=== PATIENT | male | born 1980 | race Caucasian/White ===

== ENCOUNTER 2017-03-06 20:05 | Inpatient (IN) | payer BC ==
[2017-03-06] MEDS ORDERED: Ondansetron HCl/PF 4 MG/2 ML Vial ONE (20:24)
[2017-03-06] MEDS ORDERED: Fentanyl 100 MCG/2 ML VIAL ONE ×2 (20:24→21:34)
[2017-03-06 20:50] LABS: Hematocrit 48.9 % (42.0-52.0); Mean Platelet Volume 7.3 fL (7.4-10.4); Red Blood Cell (RBC) Count 5.19 mill/uL (4.70-6.10); White Blood Cell (WBC) Count 8.4 thou/uL (4.8-10.8)
[2017-03-06 20:56] LABS: PTT 24.5 SEC (22.9-36.1); Prothrombin Time 11.5 SEC (12.0-14.7)
[2017-03-06 21:13] LABS: ALT (SGPT) 29 U/L (8-55); AST (SGOT) 21 U/L (5-34); Alkaline Phosphatase 47 U/L (40-150); Anion Gap 17 mmol/L (10-20); BUN (Urea Nitrogen) 10 mg/dL (8.9-20.6); Bilirubin, Total 0.6 mg/dL (0.2-1.2); Calc. Creatinine Clearance 0 mL/min (70-130); Carbon Dioxide 22 mmol/L (22-29); Chloride 105 mmol/L (98-107); Estimated GFR-MDRD 85; Globulin 3.5 g/dL (2.4-3.5); Neutrophil 29 % (42-75); Protein, Total 8.5 g/dL (6.0-8.3); Reactive Lymphocytes 3 % (0-10)
--- NOTE | 2017-03-06 21:14 | RAD ---
FOUR VIEWS LEFT ELBOW 03/06/17 HISTORY: Patient fell over dog with left elbow pain. AP, lateral and both oblique views left elbow is obtained. Four views left elbow demonstrates no evidence of left elbow fractures, subluxations, or bony lesion s seen. IMPRESSION: Normal four views left elbow. POS: [facility]
--- NOTE | 2017-03-06 21:27 | CT ---
CT BRAIN 03/06/17 HISTORY: Fall with head trauma. Noncontrast enhanced CT images of the brain is obtained. The brain is unremarkable. No evidence of intracranial masses, hemorrhages, strokes, or contusions s een. Ventricles are of normal size. IMPRESSION: Normal CT brain. POS: [facility]
--- NOTE | 2017-03-06 21:33 | RAD ---
THREE VIEWS LEFT HAND: 03/06/17 HISTORY: Patient who fell over a dog with trauma and injury and pain into the left hand. AP, lateral and oblique views left hand is obtained. Three views left hand demonstrate no evidence of left hand fractures, subluxations, or bony lesions. IMPRESSION: Normal three views left hand. POS: [facility]
--- NOTE | 2017-03-06 22:29 | CT ---
CT CERVICAL SPINE 03/06/17 HISTORY: 37-year-old who fell over his dog. Presents to the Emergency Room with bleeding of the nose and poss ible loss of consciousness. Axial images are obtained with coronal and sagittal reconstructions. Anterior and posterior degenerating osteophytes seen at the C5-6 disc space. No evidence of acute fr actures seen. Vertebral bodies are unremarkable. The neural foramen are patent. IMPRESSION: No evidence of acute cervical spine fracture seen. POS: [facility]
--- NOTE | 2017-03-06 22:32 | RAD ---
THREE VIEWS LEFT WRIST 03/06/17 HISTORY: Fell over dog with left wrist pain. AP, lateral and oblique views left wrist is obtained. FINDINGS/IMPRESSION: No evidence of acute left wrist fractures or bony lesions seen. There does appears to be an area of ossification adjacent to the ulnar styloid. This may be due to previous old trauma. No acute left wr ist fractures or bony lesions seen. If patient has continued pain and there is clinical concern for an occult fracture, repeat radiograph left wrist in 7-10 days may be a consideration for followup. POS: [facility]
[2017-03-06] MEDS ORDERED: Sodium Chloride 0.9% 1,000 ML IV SCH (23:00)
[2017-03-06] MEDS ORDERED: Dexamethasone 4 MG TAB ONE (23:05)
[2017-03-06] MEDS ORDERED: Morphine 2 MG/ML SYRINGE ONE ×2 (23:08→23:13)
[2017-03-06] MEDS ORDERED: CEFAZOLIN/Water 2 GM/20 ML SYRINGE SLOW IVP SCH (23:15)
--- NOTE | 2017-03-07 00:02 | MRI ---
MRI CERVICAL SPINE 03/06/17 HISTORY: 37-year-old who fell with pain in upper arms. Multiplanar and multisequence noncontrast enhanced MRI images cervical spine obtained. Images are suboptimal due to patient motion. The patient had multiple sequences repeated; however, t he patient repeatedly is moving, and degrading the quality of the exam. No definite evidence of cord signal abnormality seen. Multilevel cervical spinal stenosis is seen. T he patient appears to have congenital and chronic changes of cervical stenosis, most extensive invol ving the mid cervical spine extending from C3-4 to a lesser degree C4-5 and the C5-6 levels. C1-2: Unremarkable. C2-3: There is a mild broad based disc bulge resulting in mild to moderate compression of the anteri or aspect of the C2-3 central spinal canal. No evidence of cord compression is seen. The neural fora men are patent. C3-4: There is a broad based disc osteophyte complex at C3-4 compressing the thecal sac resulting in moderate to severe central spinal stenosis. There is moderate right and moderate to severe left leonila ed C3-4 neural foraminal narrowing due to uncovertebral osteophyte hypertrophy. C4-5: There is a broad central disc osteophyte protrusion and disc osteophyte complex which compress es the thecal sc resulting in moderate degree of central spinal stenosis. Minimal bilateral neural f oraminal narrowing is seen. C5-6: There is a broad based disc osteophyte complex at C5-6 compressing the thecal sac resulting in moderate to severe C5-6 central spinal stenosis compressing the thecal sac and having some moderate cord compression as well. No definite evidence of cord edema is seen; however, images are less than optimum as mentioned above due to patient motion. Subtle cord edema cannot be excluded due to patie nt motion. There does appear to be moderate severe right and mild to moderate left C5-6 neural kaylee inal narrowing due to uncovertebral osteophyte hypertrophy. C6-7: Unremarkable. IMPRESSION: C3-4 and C5-6 moderate to severe central spinal stenosis. Less severe C4-5 central stenosis is also seen. These appear to be longstanding and chronic. No definite evidence of significant edema seen in the spinal cord or obvious soft tissue components of the cervical spine. POS: [facility]
[2017-03-07] MEDS ORDERED: Ondansetron ODT 4 MG TAB SL PRN (01:24)
[2017-03-07] MEDS ORDERED: Ondansetron HCl/PF 4 MG/2 ML Vial IVP PRN ×2 (01:24→19:57)
[2017-03-07] MEDS: Morphine 2 MG/ML SYRINGE SLOW IVP PRN ×3 (01:44→05:58)
[2017-03-07] MEDS: Dexamethasone 4 MG in Sodium Chloride 0.9% 50 ML IVPB SCH ×5 (01:49→23:18)
[2017-03-07 03:13] VITALS: BMI 36.8
--- NOTE | 2017-03-07 06:22 | CON ---
DATE OF CONSULTATION: 03/06/2017 HISTORY OF PRESENT ILLNESS: Mr. Silverman is a 37-year-old male, who I saw in the emergency depar tment at [facility]. He reports out playing with his children in the yard when chang bhagat tripped over his Labrador and fell. The patient thinks that he passed out and hit his face. He h as a laceration above the right eye. He described when he awoke, he could not feel his arms or move them and this lasted for approximately 4-5 minutes. His legs initially had some sensation or pares thesias to the legs, however, they resolved quickly. He was able to roll up over and stand up, just using his legs. The strength began to come back into his arms, but he describes sensation of burni ng and tingling and on fire in his arms; from the elbow down to the hand is the worst bilaterally. His neck feels stiff. There has been no change in the patient's condition since [facility]. He has pain in bilateral arms, rated 10/10. A CT scan of the neck was completed and was negative. A CT scan of the head was completed and was negative; however, the patient had sy mptoms of central cord syndrome and he is currently in the MRI scanner. Neurosurgery was consulted for these findings. 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 ALLERGIES: No known drug allergies. CURRENT MEDICATIONS: None. PAST MEDICAL HISTORY: Includes tetanus up-to-date, flu vaccine up-to-date, pneumococcal vaccine not up-to-date. PAST SURGICAL HISTORY: Left shoulder surgery and left foot surgery. SOCIAL HISTORY: The patient drinks socially once a month. He denies drug use. Currently uses toba account executive, chewing tobacco approximately 1 can every 4 days. REVIEW OF SYSTEMS: Patient complains of paresthesias, numbness and tingling in the upper extremitie s bilaterally. He has no focal weakness. All other review of systems is negative except for that m entioned above in HPI. PHYSICAL EXAMINATION: VITAL SIGNS: The patient's vital signs on admission were blood pressure 140/129, pulse of 92, respi rations 20, temperature 97.8, O2 sat 100% on room air. GENERAL: The patient is alert and oriented x3, appears to be in no acute distress. HEENT: Head is normocephalic, atraumatic with a small laceration above his right eye and on the nos e. His hearing is intact. He has moist mucous membranes. His trachea is midline. Eyes, pupils ar e equal and reactive to light. Extraocular muscles are intact. Sclerae are white, nonicteric. NECK: Patient is in a rigid C-collar. There is no swelling around his neck. RESPIRATORY: The patient has bilateral symmetric chest rise. He has nontender chest. He has no re spiratory distress. CARDIOVASCULAR: Patient has regular rate and rhythm, normal S1, S2 heart sounds, appears to have no distal cyanosis or clubbing. ABDOMEN: Abdomen is nontender, nondistended. No peritoneal signs. BACK: No tenderness to palpation along the thoracic and lumbar spine. No bruising. EXTREMITIES: Upper extremity tenderness to palpation of the arms and wrists, tingling in the arms a nd wrists and burning feeling. No broken skin on the upper extremities. Lower extremity inspection , normal range of motion, bony prominences, nontender. No deformities, no lesions, and no dermatoma l sensory loss. NEUROLOGIC: Cranial nerves II-XII are grossly intact. Speech is fluent. He answers my questions a ppropriately. His GCS is 15. He has got no focal sensory or motor deficits in the upper or lower e xtremities. SKIN: Skin is warm and dry, normal in color. LABORATORY DATA: Patient's total protein is 8.5. His prothrombin time is 11.5. INR is normal. ASSESSMENT: Mr. Silverman is a 37-year-old male, who presents with central cord syndrome. He has paresthesias to the upper extremities bilaterally. PLAN: We will admit Mr. Silverman to the surgical non-ortho floor. We will start Decadron 4 mg p .o. q.6 hours. We will do neuro checks q.4 hours. We will keep his map 85-90 mmHg. We will order a Circle J collar. We will also start gabapentin for the burning sensation in his upper extremities and help to control his pain. If there are any further questions, please feel free to contact Neuro surgery. Thank you for this consult and ability to care for this patient.
--- NOTE | 2017-03-07 06:48 | PRG ---
DATE OF SERVICE: 03/07/2017 Mr. Silverman is a 37-year-old male I saw in his room this morning. He came in last night with sy mptoms of central cord syndrome. Overnight, his vital signs have been stable. He still complains o f burning, numbness, and tingling from the mid upper arm down to his fingers bilaterally. He has go od strength in his upper and lower extremities bilaterally. Today we will plan on doing a multileve l cervical decompression. I will add gabapentin to his medicine regimen. We will also get physical therapy involved post-surgery. There are no new labs. The report on the cervical spine has resulted showing C3-4 and C5-6 severe c entral canal stenosis. No definitive evidence of significant edema in the spinal cord, obvious soft tissue components of the cervical spine. If there are any further questions, please feel free to contact Neurosurgery.
--- NOTE | 2017-03-07 06:57 | PRG ---
DATE OF SERVICE: 03/07/2017 I personally interviewed and examined the patient and agree with documentation of Robert Weiss PA-C, dated 03/06/2017. Briefly, Owen Silverman is a 37-year-old gentleman who was playing with his 8-year-old son yester day. He thinks he tripped over his Labrador and on the way down his head struck an object. He has some forced extension of the cervical spine and immediate weakness in both arms. He was brought to the emergency department where the legs worked quite well, but the arms were nonfunctional. Eventua lly, they began to function and the motor strength has returned. Unfortunately, that return of stre ngth is accompanied by some terrible central pain which is burning dysesthesias in both forearms and hands. Overnight his neurological examination has stayed. Yesterday an MRI scan was performed. This morning, Mr. Silverman was seen in his hospital room. He is reasonably comfortable. He just got an injection of morphine and that has temporized his pain a bit. He has good strength in the i nterossei of both hands. The wrist and finger extensors and proximal muscles seem to be working wel l at least antigravity, but it is difficult to examine them fully given the burning pain in the arms . I reviewed the MRI scan of the cervical spine, there is intervertebral disk disease with cord compre ssion at C3-4 and C5-6. At both of these levels the cord was severely compressed. This clinical scenario, it is a central cord syndrome. I have offered to decompress the cord today with an ACDF at both levels. INFORMED CONSENT: I discussed indications, risks, benefits, and alternatives as well as expected ou tcomes from surgery. The risks discussed included, but were not limited to bleeding, infection, CSF leak, nerve damage, damage to the carotid artery, trachea, jugular vein, vocal cords or swallowing mechanism, spinal cord injury, paralysis, ventilator dependence, wheelchair dependence, cardiopulmon ruben complications of anesthesia and . Long-term risks include instrumentation failure and need for further surgery. Mr. Silverman understands the risks and is willing to proceed. We will tabatha e him to the operating room today.
[2017-03-07] MEDS ORDERED: hydrALAZINE 20 MG/ML VIAL SLOW IVP PRN (07:19)
[2017-03-07] MEDS ORDERED: Dextrose 50% Abboject 50 ML SYRINGE SLOW IVP PRN (07:19)
[2017-03-07] MEDS ORDERED: Dextrose 5% in Water 1,000 ML IV PRN (07:19)
[2017-03-07] MEDS: Morphine 2 MG/ML SYRINGE IVP PRN ×4 (07:56→23:33)
[2017-03-07] MEDS: Famotidine/PF 20 mg/2ml Vial SLOW IVP SCH ×2 (08:10→21:55)
[2017-03-07] MEDS: Pantoprazole 40 MG VIAL IVP SCH (08:11)
[2017-03-07] MEDS: Gabapentin 300 MG CAP PO SCH ×3 (08:16→21:55)
--- NOTE | 2017-03-07 09:43 | HP ---
DATE OF ADMISSION: 03/06/2017 REQUESTING PHYSICIAN: Dr. Shea. CONSULTATIONS: Neurosurgery, Dr. Phelan. ATTENDING SURGEON: Dr. Gong. HISTORY OF PRESENT ILLNESS: The patient is a 37-year-old man, who was playing in the yard with his son when he fell and landed face forward and hyperextended his neck, and the patient repor ts several minutes of being unable to use his upper extremities and some weakness in his lower extre mities. The patient was able to eventually get himself to his feet and ambulate to his house where he was able to notify a neighbor, who brought him to the emergency department where he underwent vandana luation and was noted to have a central cord syndrome, at which time we were asked to evaluate the p atient for admission and obtain neurosurgical consultation. ALLERGIES: None. MEDICATIONS: None. PAST MEDICAL HISTORY: None. PAST SURGICAL HISTORY: Left shoulder reconstruction and left foot bunionectomy. 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 He chews tobac co approximately 1 can every 4 days, occasional ETOH, and denies drug use. FAMILY MEDICAL HISTORY: Significant for hypertension. PHYSICAL EXAMINATION: VITAL SIGNS: Temperature is 97.9, heart rate is 79, blood pressure 123/85, respirations 20, oxygen saturation is 97% on room air. GENERAL: The patient is resting comfortably in bed. He is alert and oriented x3. Jeffrey coma sca le is 15. HEENT: Head is atraumatic, normocephalic. Eyes, extraocular motion intact. PERRLA bilaterally. E ars are atraumatic without discharge. Nose is atraumatic without discharge. Oropharynx is clear. NECK: Currently immobilized in a Jakin J Collar. Patient denies midline tenderness. His trachea i s midline. No JVD. CHEST: Clear to auscultation with good inspiratory and expiratory effort. ABDOMEN: Soft and flat with hypoactive bowel sounds. Pelvis is stable. EXTREMITIES: The patient has 5/5 strength in all 5 extremities. NEUROLOGIC: The patient is intact in bilateral lower extremities. His upper extremities have a mul tidermatomal varying decrease in sensation and cortical pins and needle sensation from his neck down to his fingertips. He says there is occasional burning with this and some numbness. BACK: Atraumatic and nontender. LABORATORY FINDINGS: White blood cell count 8.4, hemoglobin 17.5, hematocrit 48.9, platelets 272. Sodium 140, potassium 4.0, chloride 105, CO2 of 22, BUN 10, creatinine 1.00, glucose 97. LFTs are u nremarkable. PT 12, INR 0.8, PTT 25. RADIOGRAPHIC REPORT: CT of the brain without contrast shows no acute abnormalities. CT of the C-sp ine without contrast shows no evidence of acute cervical spine fracture. Radiographs of the left yoon nd are normal. Radiographs of the left wrist showed no definite acute findings. Radiographs of the left elbow are unremarkable. MRI of the C-spine shows C3-C4 and C5-C6 [id number] central c anal stenosis. There is no definite evidence of significant edema in the spinal cord or obvious sof t tissue components of the cervical spine. ASSESSMENT AND PLAN: 1. Status post ground-level fall. 2. Central cord syndrome. Plan will be to admit the patient to the surgical floor, discussion with Neurosurgery, the patient w ill be consented for surgical decompression, and the appropriate procedures will happen today. The patient will remain n.p.o. He will have pain control, pulmonary toilet, gastritis and mechanical DV T prophylaxis instituted. The evaluation, examination, laboratory, and radiographic findings were d iscussed with Dr. Gong, both in the emergency department and this morning. The patient and his m other's questions were answered at this time also. The patient will also be rounded on by the [facility] later this morning.
[2017-03-07] MEDS: Sodium Chloride 0.9% 1,000 ML IV SCH ×2 (10:43→18:10)
[2017-03-07] MEDS: Famotidine 20 MG TAB PO SCH ×2 (10:43→21:55)
[2017-03-07] MEDS: Diazepam 10 MG/2 ML SYRINGE IVP PRN ×2 (10:48→23:19)
[2017-03-07] MEDS ORDERED: Acetaminophen 1,000 MG in Premix Bag 1 BAG IVPB SCH (12:00)
[2017-03-07] MEDS ORDERED: Fentanyl 100 MCG/2 ML VIAL ONE ×6 (13:37→20:09)
[2017-03-07] MEDS ORDERED: Midazolam HCl 2 mg/2 ml Vial ONE (13:59)
[2017-03-07] MEDS ORDERED: CEFAZOLIN/Water 2 GM/20 ML SYRINGE ONE (14:16)
[2017-03-07] MEDS ORDERED: Sodium Chloride 0.9% 10 ML ONE (14:30)
[2017-03-07] MEDS ORDERED: Thrombin 5000 UNITS/5 ML VIAL ONE (14:30)
[2017-03-07] MEDS ORDERED: Fentanyl 250 MCG/5 ML VIAL ONE (15:17)
[2017-03-07] MEDS ORDERED: Propofol 200 MG/20 ML VIAL ONE (15:48)
[2017-03-07] MEDS ORDERED: Ondansetron HCl/PF 4 MG/2 ML Vial ONE (15:48)
[2017-03-07] MEDS ORDERED: Ketorolac Tromethamine 30 MG/ML VIAL ONE (15:48)
[2017-03-07] MEDS ORDERED: Dexamethasone 20 MG/5 ML VIAL ONE (15:48)
[2017-03-07] MEDS ORDERED: Lidocaine 1% PF 5 ML VIAL ONE (15:48)
[2017-03-07] MEDS ORDERED: PHENYLEPHRINE-NS 100 MCG/ML 10 ML SYRINGE ONE (15:48)
[2017-03-07] MEDS ORDERED: Glycopyrrolate 0.2 MG/ML 5 ML SYRINGE ONE (15:48)
[2017-03-07] MEDS: Acetaminophen 1,000 MG in Premix Bag 1 BAG IVPB SCH ×2 (16:03→21:49)
[2017-03-07] MEDS ORDERED: Phenylephrine 10 MG/NS 250 ML 250 ML ONE (16:04)
[2017-03-07] MEDS ORDERED: Rocuronium Bromide 50 MG/5 ML VIAL ONE (19:08)
[2017-03-07] MEDS ORDERED: Ondansetron ODT 4 MG TAB PO PRN (19:37)
[2017-03-07] MEDS ORDERED: HYDROmorphone 2 MG/ML VIAL SLOW IVP PRN (19:57)
[2017-03-07] MEDS ORDERED: Promethazine HCl 25 MG/ML VIAL IM PRN (19:57)
[2017-03-07] MEDS ORDERED: Promethazine HCl 25 MG/ML VIAL SLOW IVP PRN (19:57)
[2017-03-08] MEDS: Morphine 2 MG/ML SYRINGE IVP PRN (01:08)
--- NOTE | 2017-03-08 01:46 | OP ---
DATE OF SURGERY: 03/07/2017 SURGEON: Megan Phelan M.D. GERIATRIC NURSE ASSISTANT: Robert Weiss PA-C. PREOPERATIVE INDICATION: Prevent neurological deterioration. PREOPERATIVE DIAGNOSIS: Traumatic intervertebral disk herniation C3-C4, C5-C6 with central spinal c ord injury. POSTOPERATIVE DIAGNOSIS: Traumatic intervertebral disk herniation C3-C4, C5-C6 with central spinal cord injury. OPERATIVE PROCEDURES: Anterior cervical diskectomy, intravertebral arthrodesis, placement of interv ertebral biomechanical devices, local morselized autograft, morselized allograft, and anterior cervi juwan plating at C3-C4 and at C5-C6, operating microscope. PREOPERATIVE MEDICATION: Ancef 2 grams IV. DRAIN NUMBER: Zero. DRAIN TYPE: None. OPERATIVE DICTATION: The patient was brought to the operating room. General endotracheal anesthesi a was induced. Intubation was awake fiberoptic. We kept the neck in static normal anatomic alignme nt position of thehead on a gel-filled donut shaped head rest. A lateral fluoro radiograph was used to plan our incision. The right side of the neck was sterilely prepped and draped. We opened with a 10 blade knife and controlled bleeding with bipolar cautery. We dissected sharply to the platysm a and cut this muscle in line with our incision. We continued our dissection medial to the sternocl eidomastoid and lateral to the trachea and esophagus. We arrived to the prevertebral space. We renato alexx a marker at C3-C4 and took a lateral fluoro radiograph to confirm the levels upon which we were operating. We then elevated the longus colli muscles off the anterior surface of C3, C4, C5, and C6 . We placed a self-retaining retractor at C3-C4 and distraction pins in C3 and C4 and distracted ac ross the intervening interspace. We incised the interspace with a 15 blade knife and removed disk c ontents using curettes and rongeurs. The operating microscope was brought into the field. Under microscopic magnification and using microsurgical techniques, we removed the remainder of the intervertebral disk. We carefully accessed the ventral epidural space with a micro curet and used a 1-mm Kerrison rongeurs to remove the posterior longitudinal ligament and all the disk material from the spinal canal. We decompressed both nerve roots and at the completion of the decompression, the dura was no longer under tension. We prepped the endplates for grafting using curets and measured the height of the interspaces to 7 mm. A 7-mm PEEK intravertebral graft was brought into the field. This biomechanical device was loaded with demineralized bone matrix and morselized autograft. The autograft was carefully prepared on the back table by removing soft tissue from the osteophytes, th at were taken out during our decompression. The morselized bone was added to demineralized bone mat lisa as our fusion substrate, placed into the PEEK graft and the PEEK graft was advanced into the int erspaces under radiographic guidance to the appropriate depth. We removed the distraction pins and the lateral retractors. We removed the retractor to C5-C6. We placed distraction pins that we had removed from C3-C4 into C5-C6. We distracted across the intervening interspace. We continued under the operating microscope to remove the intervertebral disk. We accessed the ventral epidural space in the same fashion and removed the posterior longitudinal ligament from one neural foramen all the way to the other. We prepared the endplates for grafting and measured the height of the interspace s to 6 mm. A 6 mm PEEK graft was brought into the field. This was loaded with demineralized bone m atrix and morselized autograft and advanced into the C5-C6 interspaces under radiographic guidance t o the appropriate depth. We then removed our distraction pins and lateral retractors. The operatin g microscope was taken back out of the field. At C5-C6, a 16-mm anterior cervical plate was brought into the field. We drilled airline pilot/first officer holes throug h the plate into the vertebral segments and affixed the plate using 14 mm screws. We used variable angle screws at C5 and fixed angle screws at C6. We engaged the locking mechanism over each of the 4 screws. We turned our attention to C3-C4. Here, a 14 mm plate was used. We drilled airline pilot/first officer holes in the same fashion and affixed the plate using 14 mm screws as well. We used fixed angle screws at C4 and variable angle screws at C3. AP and lateral fluoro radiographs confirmed adequate position of all instrumentation. We rechecked the locking mechanism over all 8 screws and they were engaged. We irrigated copiously with bacitracin irrigation. We closed the wound in anatomic layers and we applied a sterile dressing. This was a clean case and no contamination.
[2017-03-08] MEDS: Morphine 2 MG/ML SYRINGE SLOW IVP PRN ×4 (02:02→08:14)
[2017-03-08] MEDS: Acetaminophen 1,000 MG in Premix Bag 1 BAG IVPB SCH ×3 (02:06→14:27)
[2017-03-08] MEDS: diphenhydrAMINE 50 MG/ML VIAL IVP PRN ×4 (04:42→20:00)
[2017-03-08] MEDS: Sodium Chloride 0.9% 1,000 ML IV SCH (04:44)
[2017-03-08] MEDS: Dexamethasone 4 MG in Sodium Chloride 0.9% 50 ML IVPB SCH (05:02)
[2017-03-08 05:39] LABS: #Basophils 0.1 thou/uL (0.0-0.2); #Lymphocytes 1.1 thou/uL (1.20-3.40); #Monocytes 0.6 thou/uL (0.11-0.59); #Neutrophils 8.3 thou/uL (1.40-6.50); %Basophils 1.2 % (0.0-1.0); %Eosinophils 0.1 % (0.0-10.0); %Lymphocytes 11.3 % (21.0-51.0); %Monocytes 5.7 % (0.0-10.0); Hematocrit 41.2 % (42.0-52.0); Mean Platelet Volume 7.4 fL (7.4-10.4); Red Blood Cell (RBC) Count 4.32 mill/uL (4.70-6.10); White Blood Cell (WBC) Count 10.1 thou/uL (4.8-10.8)
[2017-03-08 05:44] LABS: Anion Gap 14 mmol/L (10-20); BUN (Urea Nitrogen) 15 mg/dL (8.9-20.6); Calc. Creatinine Clearance 179 mL/min (70-130); Carbon Dioxide 21 mmol/L (22-29); Chloride 105 mmol/L (98-107); Estimated GFR-MDRD Greater than 90
[2017-03-08] MEDS: Pantoprazole 40 MG VIAL IVP SCH (08:12)
[2017-03-08] MEDS: Famotidine 20 MG TAB PO SCH ×2 (08:14→19:47)
[2017-03-08] MEDS: Gabapentin 300 MG CAP PO SCH ×3 (08:14→19:47)
--- NOTE | 2017-03-08 08:29 | PRG ---
DATE OF SERVICE: 03/08/2017 NEUROSURGERY PROGRESS NOTE Mr. Silverman is 1 day out from a 2-level ACDF for central cord syndrome. The burning pain in his forearms and hands has improved significantly, but remains. He has a good neurological function th is morning. The deltoids, biceps, triceps, wrist extensors, finger extensors, and interossei are al l close to normal strength bilaterally. He can still appreciate sensation in the fingers, but there is the residual burning, numbing feeling from his central cord injury. Mr. 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 We will get physical therapy to comment as to whether he would be a good candidate for outpa tient therapy versus inpatient. I think he is ambulatory and more enough that outpatient therapy is reasonable. Finally, we will add Lyrica to his medication regimen and then taper him off of his st eroids. I will ask our anesthesia colleagues that there is any other medications that are good for central cord injury, so that we can taper him off of the morphine and get him out of the hospital.
[2017-03-08] MEDS ORDERED: Pregabalin 75 MG CAP PO SCH (09:00)
[2017-03-08] MEDS ORDERED: Fentanyl 100 MCG/2 ML VIAL SLOW IVP PRN (09:44)
[2017-03-08] MEDS: Cepastat Lozenges 1 LOZ PO PRN ×3 (10:50→19:52)
[2017-03-08] MEDS ORDERED: fentaNYL 50 mcg/hour Patch TD SCH (11:00)
[2017-03-08] MEDS: Famotidine/PF 20 mg/2ml Vial SLOW IVP SCH ×2 (11:17→19:47)
[2017-03-08] MEDS: Ketorolac Tromethamine 30 MG/ML VIAL IVP SCH ×2 (11:30→19:28)
[2017-03-08] MEDS: Dexamethasone 4 mg/ml Vial SLOW IVP SCH ×2 (11:31→17:12)
[2017-03-08] MEDS ORDERED: DEXAMETHASONE IVPB SCH (12:00)
[2017-03-08] MEDS ORDERED: ADMIXTURE FEE IVPB SCH (12:00)
[2017-03-08] MEDS ORDERED: SODIUM CHLORIDE IVPB SCH (12:00)
[2017-03-08] MEDS: Diazepam 10 MG/2 ML SYRINGE IVP PRN (18:39)
--- NOTE | 2017-03-08 19:04 | PRG ---
DATE OF SERVICE: 03/08/2017 SUBJECTIVE: This is a postop day #1 from a 2-level ACDF for central cord syndrome. The patient rep orted the burning in his forearms and hands have improved significantly, but remains still present. Neurologic dysfunction is improving. Strength is getting stronger and he can still appreciate sens ation in the fingers. OBJECTIVE: VITAL SIGNS: Currently temperature 98, heart rate 86, respirations 16, sats are 95% on room air and blood pressure 161/82. GENERAL: No acute distress at this time. LUNGS: Clear bilaterally to auscultation. Cervical collar is in place. ABDOMEN: Soft, nontender and nondistended. Pelvis is intact. EXTREMITIES: Moving all extremities. LABORATORY FINDINGS: WBC 10.1, hemoglobin 14.4, hematocrit 41.2 and platelet count 239. Chemistry: Sodium 136, potassium 4.1, chloride 105, bicarbonate 21, BUN 15, creatinine 0.94 and glucose 129. ASSESSMENT: 1. Status post fall. 2. Acute central cord syndrome. 3. Postoperative day #1, from his anterior cervical diskectomy and fusion two levels. PLAN: Continue following the anesthesia. They will manage his pain at this time, Neurosurgery is a dding Lyrica and tapering off steroids and continue to work with PT and OT at this time, patient has continued doing well, most likely an outpatient therapy could be a good possibility for this patien t. The patient was seen by Dr. Fontanez at the bedside and agrees with the above plan.
[2017-03-09] MEDS: Dexamethasone 4 mg/ml Vial SLOW IVP SCH ×3 (00:24→20:24)
[2017-03-09] MEDS: Ketorolac Tromethamine 30 MG/ML VIAL IVP SCH ×2 (00:24→06:09)
[2017-03-09] MEDS: Diazepam 10 MG/2 ML SYRINGE IVP PRN (00:25)
[2017-03-09] MEDS: Famotidine/PF 20 mg/2ml Vial SLOW IVP SCH ×2 (08:28→20:32)
[2017-03-09] MEDS: Gabapentin 300 MG CAP PO SCH ×3 (08:29→20:23)
[2017-03-09] MEDS: diphenhydrAMINE 25 MG CAP PO PRN ×3 (08:29→20:23)
[2017-03-09] MEDS: Cepastat Lozenges 1 LOZ PO PRN (08:30)
[2017-03-09] MEDS: Famotidine 20 MG TAB PO SCH ×2 (08:32→20:24)
[2017-03-09] MEDS ORDERED: SODIUM CHLORIDE IVPB SCH (09:00)
[2017-03-09] MEDS ORDERED: ADMIXTURE FEE IVPB SCH (09:00)
[2017-03-09] MEDS ORDERED: DEXAMETHASONE IVPB SCH (09:00)
[2017-03-09] MEDS ORDERED: Cyclobenzaprine 10 MG TAB PO PRN (09:14)
[2017-03-09] MEDS: Acetaminophen 500 MG TAB PO SCH ×3 (09:45→22:03)
[2017-03-09] MEDS: traMADol HCl 50 MG TAB PO SCH ×3 (09:46→22:03)
[2017-03-09] MEDS: Ibuprofen 600 MG TAB PO SCH ×3 (09:46→22:03)
[2017-03-09] MEDS: Senokot S 8.6-50 MG TAB PO SCH (20:23)
[2017-03-10] MEDS: diphenhydrAMINE 25 MG CAP PO PRN ×2 (00:23→08:35)
[2017-03-10] MEDS: Cepastat Lozenges 1 LOZ PO PRN (00:27)
[2017-03-10] MEDS: traMADol HCl 50 MG TAB PO SCH ×2 (04:04→10:02)
[2017-03-10] MEDS: Acetaminophen 500 MG TAB PO SCH ×2 (04:04→10:01)
[2017-03-10] MEDS: Ibuprofen 600 MG TAB PO SCH ×2 (04:05→10:01)
[2017-03-10] MEDS: Famotidine 20 MG TAB PO SCH (08:35)
[2017-03-10] MEDS: Senokot S 8.6-50 MG TAB PO SCH (08:35)
[2017-03-10] MEDS: Gabapentin 300 MG CAP PO SCH (08:35)
[2017-03-10] MEDS: Famotidine/PF 20 mg/2ml Vial SLOW IVP SCH (08:36)
[2017-03-10] MEDS ORDERED: DEXAMETHASONE IVPB SCH (09:00)
[2017-03-10] MEDS ORDERED: SODIUM CHLORIDE IVPB SCH (09:00)
[2017-03-10] MEDS ORDERED: Dexamethasone 4 mg/ml Vial SLOW IVP SCH (09:00)
[2017-03-10] MEDS ORDERED: ADMIXTURE FEE IVPB SCH (09:00)
[2017-03-10] MEDS ORDERED: Polyethylene Glycol 3350 17 GM Packet PO SCH (09:00)
[2017-03-10 09:20] VITALS: TEMP 97.4
[2017-03-10] MEDS ORDERED: Fleet Enema 133 ML BOT PR SCH (10:30)
[2017-03-10 12:31] VITALS: BP 147/99
[2017-03-10] MEDS ORDERED: Ketorolac Tromethamine 30 MG/ML VIAL IVP PRN (18:00)
[2017-03-11] MEDS ORDERED: SODIUM CHLORIDE IVPB SCH (09:00)
[2017-03-11] MEDS ORDERED: ADMIXTURE FEE IVPB SCH (09:00)
[2017-03-11] MEDS ORDERED: DEXAMETHASONE IVPB SCH (09:00)
[2017-03-11] MEDS ORDERED: Dexamethasone 4 mg/ml Vial SLOW IVP SCH (09:00)
== END 2017-03-10 14:20 | disposition home or self-care (01) | DRG 473 ==
LOC: ERS 20:05 → SURG A 23:39
PROVIDERS: ADMIT Surgery; ATTEND Surgery
PROC: 0RT30ZZ Resection of Cervical Vertebral Disc, Open Approach (ICD-10-PCS; principal; 2017-03-07)
PROC: 0RG20A0 Fusion of 2 or more Cervical Vertebral Joints with Interbody Fusion Device, Anterior Approach, Anterior Column, Open Approach (ICD-10-PCS; 2017-03-07)
PROC: 01N10ZZ Release Cervical Nerve, Open Approach (ICD-10-PCS; 2017-03-07)
DX: S13.161A Dislocation of C5/C6 cervical vertebrae, initial encounter (principal); M48.02 Spinal stenosis, cervical region; S14.126A Central cord syndrome at C6 level of cervical spinal cord, initial encounter; W18.30XA Fall on same level, unspecified, initial encounter; Y92.017 Garden or yard in single-family (private) house as the place of occurrence of the external cause; F17.220 Nicotine dependence, chewing tobacco, uncomplicated
CPT/HCPCS: 36415; 70450; 72125; 72141; 76001; 80048; 80053; 85025; 85610; 85730; 96361; 96374; 96375; 96376; A4216; C1713; C9113; G8978-GP-CI; G8979-GP-CI; G8980-GP-CI; G8987-GO-CM; G8988-GO-CM; G8989-GO-CM; J0131; J0360; J1100; J1200; J1885; J2001; J2250; J2270; J2405; J2704; J3010; J3360; J3490; J7050; J8540; S0028

== ENCOUNTER 2017-04-25 09:05 | Outpatient (CLI) | payer BC ==
--- NOTE | 2017-04-25 10:30 | RAD ---
CERVICAL SPINE: Four views. HISTORY: Cervical radiculopathy. FINDINGS: There has been prior anterior fusion procedure. There are anterior plate and screws transfixing C3-4 with interbody implant and anterior plate and screws transfixing C5-6 with interbody implant. Poste rior alignment is preserved. Vertebral body height is maintained. The other disk spaces are preserv ed. IMPRESSION: Postoperative changes of the cervical spine as described. POS: [facility]
== END 2017-04-25 09:06 | disposition home or self-care (01) ==
LOC: TBSIIMAG 09:05
PROVIDERS: ATTEND Neurological Surgery
DX: M54.12 Radiculopathy, cervical region (principal); Z98.1 Arthrodesis status
CPT/HCPCS: 72040

== ENCOUNTER 2017-06-27 10:57 | Outpatient (CLI) | payer OTHER ==
--- NOTE | 2017-06-27 12:35 | RAD ---
CERVICAL SPINE SERIES: HISTORY: Neck pain. Previous surgery. TECHNIQUE: Five views with flexion and extension. FINDINGS: The patient has undergone anterior cervical fusion at the C3-C4 and C5-C6 levels. Markers of disk im plants are within the confines of the intervening disk levels. On flexion, I do see any abnormal mot ion related to the areas of fusion. There is very minimal retrolisthesis of C4 on C5, in extension. IMPRESSION: Postoperative and arthritic change of the spine, as discussed above. POS: [facility]
== END 2017-06-27 10:58 | disposition home or self-care (01) ==
LOC: RAD 10:57
PROVIDERS: ATTEND Neurological Surgery
DX: M47.22 Other spondylosis with radiculopathy, cervical region (principal); Z98.1 Arthrodesis status
CPT/HCPCS: 72052

== ENCOUNTER 2017-07-17 06:48 | Day surgery (SDC) | payer OTHER ==
[2017-07-16 09:07] VITALS: BMI 37.6
[~2017-07-17 06:48] MED LIST: FLU VACC QS2017-18 36 mo. & older 0.5 ML SYRINGE IM ONE
[2017-07-17 07:52] VITALS: BP 119/84; TEMP 97.9
[2017-07-17] MEDS ORDERED: Iopamidol-M 300 61% 15 ML VIAL ONE (09:58)
--- NOTE | 2017-07-17 10:21 | CT ---
POST MYELOGRAM CERVICAL SPINE CT: History: Cervical spondylosis with myelopathy. Cervical radiculopathy. Comparison: None. Technique: Post myelogram cervical spine CT is performed in the axial plane. Reformatted images are s ubmitted for interpretation. FINDINGS: Cervical spine vertebral body height is maintained. No fracture. Straightening of the normal cervical lordosis is noted. There is appropriate alignment of the facets as well as the lateral masses of C1 and C2. Intact odontoid process. Visualized soft tissue neck structures, aerodigestive tract, upper mediastinum and lung apices are un remarkable. Cervical fusion hardware with an anterior fusion plate and transvertebral body screw at C3-4 with an associated prostheses of the disc space. Cervical fusion hardware with transvertebral body screw and anterior fusion plate at C5-6 with an associated disc prostheses. The C5-6 disc prosthesis is just an terior to the inferior aspect of C5. C2-3: Central disc osteophyte complex abuts the thecal sac and effaces the subarachnoid space. Minima l mass effect of the cervical cord. Minimal central canal stenosis. Mild right foraminal narrowing. T he left neural foramen is patent. C3-4: Broad based osteophyte ridge with a central component which deforms the thecal sac and deforms the central cord. Mild to moderate central canal stenosis. Degenerative change in bilateral uncoverte bral joints results in moderate bilateral foraminal narrowing. C4-5: Broad based osteophyte complex with a central component that deforms the central thecal sac and central cord. Moderate central canal stenosis. Degenerative changes in bilateral unvcovertebral C5-6: Broad based osteophyte ridge effaces the ventral subarachnoid space. Moderate to severe central canal stenosis. Degenerative change in bilateral uncovertebral joints results in moderate right and mild to moderate left foraminal narrowing. C6-7: Central disc osteophyte complex abuts the thecal sac. Mild central canal stenosis. Foramina are patent. C7-T1: No significant disc osteophyte complex. No significant central canal stenosis. The neural fora roberto are patent. IMPRESSION: 1. Degenerative change of the cervical spine as above. 2. Post-surgical changes of the cervical spine as above. Anterior fusion plate at C5-6 is just anteri or to C5. POS: [facility]
--- NOTE | 2017-07-17 10:29 | RAD ---
CERVICAL MEYLGORAM: HISTORY: Cervical spondylosis with myelopathy. Previously cervical fusion. COMPARISON: None. EXPOSURE: 0.6 minutes. 440.3 mGy*^m2. FINDINGS: Initial 2-view ice cream freezer helper lumbar spine radiograph series demonstrates 5 lumbar-type vertebral bodies. No significant degenerative change of the lumbar spine. Two views of the cervical spine ice cream freezer helper radiograph demonstrates cervical fusion at C3 and C4 as well as C5-C6. Anterior fusion plates with transvertebral body screw. Disk prosthesis at C3-C4 and C5-C6. The disk prosthesis is slightly anterior to the C5 vertebral body. No perihardware lucency. Successful lumbar puncture for intrathecal contrast administration. A total of 8 cc of Isovue-M300 c ontrast was administered intrathecally. The patient tolerated the procedure well. No immediate or p ost procedure complication. TECHNIQUE: Consent was obtained to perform a lumbar puncture under fluoroscopic guidance. The patient's back wa s evaluated. The L3-4 level is deemed appropriate. The skin was prepped and draped in sterile fashi on. 1% Lidocaine, buffered with sodium bicarbonate was used for local anesthesia. Under fluoroscopi c guidance, a 22-gauge spinal needle was advanced into the CSF space. The inner stylette was removed . Via a short tubing catheter, a total of 8 cc of Isovue-M300 contrast was administered intrathecall y. The patient tolerated the procedure well. No immediate or post procedure complication. IMPRESSION: Successful lumbar puncture for intrathecal contrast administration. Please refer to post myelogram C T for further details. POS: [facility]
== END 2017-07-17 09:50 | disposition home or self-care (01) ==
LOC: RAD 06:48
PROVIDERS: ATTEND Neurological Surgery
PROC: B01B1ZZ Fluoroscopy of Spinal Cord using Low Osmolar Contrast (ICD-10-PCS; principal; 2017-07-17)
DX: M47.12 Other spondylosis with myelopathy, cervical region (principal); Z98.1 Arthrodesis status; F17.220 Nicotine dependence, chewing tobacco, uncomplicated
CPT/HCPCS: 62302; 72126

== ENCOUNTER 2022-11-12 17:30 | Outpatient (CLI) | payer BC | END 2022-11-12 17:31 | disposition home or self-care (01) | LOC: SLEEPLAB 17:30 | PROVIDERS: ATTEND Nurse Practitioner Family | DX: G47.33 Obstructive sleep apnea (adult) (pediatric) (principal); G47.61 Periodic limb movement disorder; F51.9 Sleep disorder not due to a substance or known physiological condition, unspecified; G47.9 Sleep disorder, unspecified; R53.83 Other fatigue; R40.0 Somnolence; R09.89 Other specified symptoms and signs involving the circulatory and respiratory systems; E66.9 Obesity, unspecified; R06.83 Snoring; G47.00 Insomnia, unspecified; G31.84 Mild cognitive impairment of uncertain or unknown etiology | CPT/HCPCS: 95800 ==

== ENCOUNTER 2023-04-25 18:44 | Inpatient (IN) | payer BC ==
[~2023-04-25 18:44] MED LIST changes: -FLU VACC QS2017-18 36 mo. & older 0.5 ML SYRINGE IM ONE; +Iopamidol-370 76% 500 ML MDV (1 ML CHARGE) ONE
[2023-04-25] MEDS ORDERED: Piperacillin/Tazobactam 4.5 GM VIAL ONE (19:21)
[2023-04-25] MEDS ORDERED: Sodium Chloride 0.9% 100 ML ONE (19:21)
[2023-04-25] MEDS ORDERED: fentaNYL 50 mcg/mL 1 mL Vial ONE ×3 (19:21→23:53)
[2023-04-25 19:28] LABS: #Monocytes 1.3 thou/uL (0.11-0.59); #Neutrophils 11.6 thou/uL (1.40-6.50); %Basophils 0.1 % (0.0-1.0); %Eosinophils 0.2 % (0.0-10.0); %Lymphocytes 12.2 % (21.0-51.0); Hematocrit 44.7 % (42.0-52.0); Hemoglobin 15.5 g/dL (14.0-18.0); Mean Corpuscular HGB CONC 34.7 g/dL (32.0-36.0); Mean Corpuscular Hemoglobin 33.9 pg (27.0-31.0); Mean Corpuscular Volume 97.8 fl (78.0-98.0); Mean Platelet Volume 9.7 fL (7.4-10.4); Platelet Count 227 10x3/uL (130-400); RBC Distribution Width 12.8 % (11.5-14.5); Red Blood Cell (RBC) Count 4.57 mill/uL (4.70-6.10); White Blood Cell (WBC) Count 14.8 10x3/uL (4.8-10.8)
[2023-04-25 19:55] LABS: ALT (SGPT) 22 U/L (8-55); AST (SGOT) 17 U/L (5-34); Albumin 4.4 g/dL (3.5-5.0); Alkaline Phosphatase 43 U/L (40-110); Anion Gap 12 mmol/L (10-20); BUN (Urea Nitrogen) 10 mg/dL (8.9-20.6); Bilirubin, Total 1.2 mg/dL (0.2-1.2); Calc. Creatinine Clearance 0 mL/min (70-130); Calcium 9.4 mg/dL (7.8-10.44); Carbon Dioxide 27 mmol/L (22-29); Chloride 102 mmol/L (98-107); Estimated GFR 81; Globulin 2.7 g/dL (2.4-3.5); Glucose 106 mg/dL (70-105); Lipase 50 U/L (8-78); Potassium 3.7 mmol/L (3.5-5.1); Protein, Total 7.1 g/dL (6.0-8.3); Sodium 137 mmol/L (136-145)
[2023-04-25] MEDS ORDERED: Fentanyl 100 MCG/2 ML VIAL SLOW IVP PRN (20:24)
[2023-04-25] MEDS ORDERED: fentaNYL PF 100 MCG/2 ML SYRINGE ONE ×2 (20:27→22:05)
[2023-04-25] MEDS ORDERED: PROPOFOL 20 ML ONE ×2 (20:27→22:30)
[2023-04-25] MEDS ORDERED: Sevoflurane 250 ML INH ANEST BOTTLE ONE (20:28)
[2023-04-25] MEDS ORDERED: Morphine 4 MG/ML VIAL ONE (20:28)
[2023-04-25] MEDS ORDERED: Ondansetron ODT 4 MG TAB SL PRN (20:30)
[2023-04-25] MEDS ORDERED: Sodium Chloride 0.9% 1,000 ML IV SCH (20:30)
[2023-04-25] MEDS ORDERED: Ondansetron PF 4 MG/2 ML Vial IVP PRN (20:30)
[2023-04-25] MEDS ORDERED: Ondansetron PF 4 MG/2 ML Vial ONE ×4 (20:33→23:22)
[2023-04-25] MEDS ORDERED: Lidocaine 1% PF 5 ML VIAL ONE ×2 (20:36→21:33)
[2023-04-25] MEDS ORDERED: Succinylcholine 200 MG/10 ml SYRINGE FS ONE ×2 (20:36→21:33)
[2023-04-25] MEDS ORDERED: Vecuronium 10 MG VIAL ONE ×2 (20:38→21:33)
[2023-04-25] MEDS ORDERED: Bupivacaine 0.25% HCL 30 ML VIAL ONE (20:38)
[2023-04-25] MEDS ORDERED: EPINEPHrine 1 MG/ML VIAL ONE (20:38)
[2023-04-25] MEDS ORDERED: Sterile Water 10 ML ONE (20:39)
[2023-04-25 21:01] LABS: Bacteria/HPF None Seen HPF (None Seen); Bilirubin Negative (Negative); Blood, Urine Negative (Negative); CAUTI Indications for Culture Pelvic or flank pain; Clarity Clear (Clear); Glucose, Urine (Dipstick) Normal (Negative); Ketone, Urine Negative (Negative); Leukocyte Negative Leu/uL (Negative); Nitrite Negative (Negative); Protein, Urine (Dipstick) Negative (Neg-Trace); RBC/HPF None Seen HPF (0-3); Specific Gravity, Urine 1.012 (1.002-1.036); Squamous Epithelial None Seen HPF (0-3); Urobilinogen Normal mg/dL (Less than 2); WBC/HPF None Seen HPF (0-3); pH, Urine 7.5 (5.0-9.0)
[2023-04-25 21:02] LABS: Urine Culture Reflex No No
[2023-04-25] MEDS ORDERED: Famotidine/PF 20 mg/2ml Vial ONE (21:23)
[2023-04-25] MEDS ORDERED: Ketorolac Tromethamine 30 MG/ML VIAL ONE ×2 (21:33→21:48)
[2023-04-25] MEDS ORDERED: PROPOFOL 200 MG/20 ML VIAL ONE (21:33)
[2023-04-25] MEDS ORDERED: Dexamethasone 20 MG/5 ML VIAL ONE ×2 (21:33→21:48)
[2023-04-25] MEDS ORDERED: Glycopyrrolate 0.2 MG/ML 5 ML SYRINGE ONE ×2 (21:33→22:18)
[2023-04-25] MEDS ORDERED: Albuterol HFA (OR) 200 PUFF INH ONE (21:33)
[2023-04-25] MEDS ORDERED: NEOSTIGMINE 3 MG/3 ML SYR 3 MG/3 ML SYRINGE ONE ×2 (21:33→22:18)
[2023-04-25] MEDS ORDERED: Ondansetron HCl/PF 4 MG/2 ML Vial IVP PRN (22:10)
[2023-04-25] MEDS ORDERED: HYDROmorphone 2 MG/ML VIAL SLOW IVP PRN (22:10)
[2023-04-25] MEDS ORDERED: Promethazine HCl 25 MG/ML VIAL IM PRN (22:10)
[2023-04-25] MEDS ORDERED: PACU-Morphine 4MG/ML VIAL SLOW IVP PRN (22:10)
[2023-04-25] MEDS ORDERED: Morphine Sulfate 2 MG/ML SYRINGE SLOW IVP PRN (22:10)
[2023-04-25] MEDS ORDERED: HYDROcodone/Acetaminophen 5/325 mg Tablet PO PRN (22:45)
[2023-04-25] MEDS ORDERED: HYDROmorphone 0.5 MG/0.5 ML SYRINGE ONE (23:19)
[2023-04-26] MEDS: Lactated Ringer's 1,000 ML IV SCH ×4 (00:46→20:08)
[2023-04-26] MEDS: Piperacillin/Tazobactam 3.375 GM in Sodium Chloride 0.9% 100 ML IVPB SCH ×2 (00:50→08:50)
[2023-04-26 01:42] VITALS: BMI 38.7
[2023-04-26 05:02] LABS: Hematocrit 39.8 % (42.0-52.0); Hemoglobin 13.7 g/dL (14.0-18.0); Mean Corpuscular HGB CONC 34.4 g/dL (32.0-36.0); Mean Corpuscular Hemoglobin 33.5 pg (27.0-31.0); Mean Corpuscular Volume 97.3 fl (78.0-98.0); Mean Platelet Volume 9.7 fL (7.4-10.4); Platelet Count 193 10x3/uL (130-400); RBC Distribution Width 13.2 % (11.5-14.5); Red Blood Cell (RBC) Count 4.09 mill/uL (4.70-6.10)
[2023-04-26] MEDS: Morphine 4 MG/ML VIAL SLOW IVP PRN ×3 (05:03→11:10)
[2023-04-26] MEDS: Ketorolac Tromethamine 30 MG/ML VIAL IVP SCH ×3 (12:25→23:19)
[2023-04-26] MEDS ORDERED: Docusate 100 MG CAP PO PRN (18:30)
[2023-04-26] MEDS ORDERED: Acetaminophen 325 MG TAB PO PRN (18:33)
[2023-04-26] MEDS: Piperacillin/Tazobactam 4.5 GM in Sodium Chloride 0.9% 100 ML IVPB SCH (20:12)
[2023-04-27] MEDS: Ketorolac Tromethamine 30 MG/ML VIAL IVP SCH ×2 (05:15→12:21)
[2023-04-27] MEDS: Piperacillin/Tazobactam 4.5 GM in Sodium Chloride 0.9% 100 ML IVPB SCH ×2 (05:16→16:53)
[2023-04-27] MEDS: Lactated Ringer's 1,000 ML IV SCH ×2 (05:16→08:46)
[2023-04-27 06:08] LABS: #Monocytes 0.8 thou/uL (0.11-0.59); #Neutrophils 8.9 thou/uL (1.40-6.50); %Basophils 0.3 % (0.0-1.0); %Eosinophils 0.3 % (0.0-10.0); %Lymphocytes 16.3 % (21.0-51.0); %Monocytes 6.7 % (0.0-10.0); %Neutrophils 75.9 % (42.0-75.0); Hematocrit 38.7 % (42.0-52.0); Hemoglobin 13.3 g/dL (14.0-18.0); Mean Corpuscular HGB CONC 34.4 g/dL (32.0-36.0); Mean Corpuscular Hemoglobin 34.1 pg (27.0-31.0); Mean Corpuscular Volume 99.2 fl (78.0-98.0); Mean Platelet Volume 9.8 fL (7.4-10.4); Platelet Count 193 10x3/uL (130-400); RBC Distribution Width 13.2 % (11.5-14.5); White Blood Cell (WBC) Count 11.7 10x3/uL (4.8-10.8)
[2023-04-27] MEDS ORDERED: Pantoprazole 40 MG VIAL IVP SCH (09:00)
[2023-04-27 12:58] VITALS: BP 124/78; TEMP 98.4
[2023-04-27] MEDS ORDERED: Ibuprofen 600 MG TAB PO PRN (14:56)
[2023-04-27] MEDS ORDERED: traMADol HCl 50 MG TAB PO PRN (14:57)
[2023-04-27] MEDS ORDERED: Acetaminophen 500 MG TAB PO PRN (15:06)
[2023-04-27] MEDS ORDERED: Amoxicillin/Potassium Clav 875 MG TAB PO SCH (21:00)
== END 2023-04-27 16:11 | disposition home or self-care (01) | DRG 398 ==
LOC: ERS 18:44 → SDC/OP 21:28 → SJJU 04-26 00:44
PROVIDERS: ADMIT Surgery; ATTEND Surgery
PROC: 0DTJ4ZZ Resection of Appendix, Percutaneous Endoscopic Approach (ICD-10-PCS; principal; 2023-04-25)
PROC: 0T9B70Z Drainage of Bladder with Drainage Device, Via Natural or Artificial Opening (ICD-10-PCS; 2023-04-26)
DX: K35.32 Acute appendicitis with perforation, localized peritonitis, and gangrene, without abscess (principal); K56.7 Ileus, unspecified; E66.9 Obesity, unspecified; I10 Essential (primary) hypertension; R33.9 Retention of urine, unspecified; Z98.890 Other specified postprocedural states; Z68.38 Body mass index [BMI] 38.0-38.9, adult
CPT/HCPCS: 36415; 74177; 80053; 81001; 83605; 83690; 85025; 85027; 87040; 88304; 93005; 94760; 96365; 96375; A4314; A4649; C9113; J0171; J1100; J1170; J1650; J1885; J2270; J2405; J2543; J2704; J3010; J3490; J7120; Q9967; S0020; S0028